=== PATIENT | female | born 1990 | race African-American/Black ===

== ENCOUNTER 2016-08-06 16:48 | Emergency (ER) | payer OTHER ==
[~2016-08-06] VITALS: Ht 165.1 cm; Wt 64.0 kg
[2016-08-06] MEDS ORDERED: TETANUS, DIPHTHERIA, PERTUSSIS VAC/PF 0.5ML (>7YR OLD) IM ONE (18:45)
[2016-08-06] MEDS ORDERED: LIDOCAINE HCL 1%/EPI 1:200,000 30 ML VIAL MC ONE (18:45)
[2016-08-06] MEDS ORDERED: HYDROCODONE/ACETAMINOPHEN 5/325MG TABLET PO PRN (18:45)
[2016-08-06] MEDS ORDERED: BACITRACIN ZINC OINT UDPKT TOP ONE (18:45)
[2016-08-06 20:35] VITALS: BP 110/69
== END 2016-08-06 20:35 | disposition home or self-care (01) ==
LOC: ER 19:06
DX: S00.12XA Contusion of left eyelid and periocular area, initial encounter (principal); S01.412A Laceration without foreign body of left cheek and temporomandibular area, initial encounter; G40.909 Epilepsy, unspecified, not intractable, without status epilepticus; Z88.8 Allergy status to other drugs, medicaments and biological substances; Y08.89XA Assault by other specified means, initial encounter; Y93.89 Activity, other specified; Y92.488 Other paved roadways as the place of occurrence of the external cause
CPT/HCPCS: 12011; 70486; 81025; 90471; 90715; 99284; Z7610

== ENCOUNTER 2016-08-12 21:27 | Emergency (ER) | payer OTHER ==
[~2016-08-12] VITALS: Ht 165.1 cm; Wt 67.0 kg
[2016-08-12 21:42] VITALS: BP 111/58
== END 2016-08-13 00:30 | disposition left against medical advice (07) ==
LOC: ER 08-13 00:17
DX: Z53.21 Procedure and treatment not carried out due to patient leaving prior to being seen by health care provider (principal)